=== PATIENT | male | born 1945 | race African-American/Black ===

== ENCOUNTER 2016-10-05 07:55 | Emergency (ER) | payer MEDICARE, OTHER ==
[~2016-10-05] VITALS: Ht 180.3 cm; Wt 80.0 kg
[~2016-10-05 07:55] MED LIST: DOXY100T PO
[2016-10-05 07:57] VITALS: BP 228/105; PULSE 104; RESP 15; TEMP 97.7; O2SAT 95
[2016-10-05 08:13] VITALS: BP 214/98; PULSE 88; RESP 18; O2SAT 100
[2016-10-05] MEDS ORDERED: SODIUM CHLOR 0.9% 1000 ML INJ 1,000 ML IV ONE (08:30)
[2016-10-05] MEDS ORDERED: ACETAMINOPHEN/HYDROcodone 325 MG/5 MG TAB PO ONE (08:30)
[2016-10-05 08:41] LABS: AUTOMATED NEUTROPHIL # 1.2 TH/MM3 (1.8-7.7); BASOPHIL % 1.4 % (0.0-2.0); EOSINOPHIL % 1.4 % (0.0-4.0); HEMATOCRIT 44.7 % (39.0-51.0); LYMPH % 45.6 % (9.0-44.0); LYMPHOCYTE # 1.5 TH/MM3 (1.0-4.8); MEAN CELL VOLUME 103.4 FL (80.0-100.0); MEAN CORPUSCULAR HEMOGLOBIN 34.2 PG (27.0-34.0); MEAN CORPUSCULAR HGB CONC 33.1 % (32.0-36.0); NEUT % 38.6 % (16.0-70.0); PLATELET COUNT 120 TH/MM3 (150-450); RED BLOOD COUNT 4.32 MIL/MM3 (4.50-5.90); RED CELL DISTRIBUTION WIDTH 13.1 % (11.6-17.2); WHITE BLOOD COUNT 3.2 TH/MM3 (4.0-11.0)
[2016-10-05 08:42] LABS: HEMO FLAGS AUTO DIFF
[2016-10-05 08:55] LABS: ALKALINE PHOSPHATASE 76 U/L (45-117); TOTAL BILIRUBIN ADULT 0.6 MG/DL (0.2-1.0)
[2016-10-05 09:06] LABS: ALT (GPT) 57 U/L (12-78); ANION GAP 8 MEQ/L (5-15); AST (GOT) 59 U/L (15-37); BICARBONATE 29.2 MEQ/L (21.0-32.0); BLOOD UREA NITROGEN 9 MG/DL (7-18); CHLORIDE 102 MEQ/L (98-107); GLOMERULAR FILTRATION RATE 91 ML/MIN (>89); POTASSIUM 4.3 MEQ/L (3.5-5.1); SODIUM (NA) 139 MEQ/L (136-145)
[2016-10-05 09:18] LABS: PLATELET ESTIMATE SMEAR LOW (NORMAL); PLATELET MORPHOLOGY ENLARGED (NORMAL); SCAN/DIFF AUTO DIFF CONFIRMED
--- NOTE | 2016-10-05 09:37 | PD ---
HPI Chief Complaint: Complaint Time Seen by Provider: 08:10 Travel History International Travel<30 days: No Contact w/Intl Traveler<30days: No Traveled to known affect area: No History of Present Illness HPI Patient is a 71-year-old male who comes in complaining of a left groin swelling. He says he's noticed it for the past week. He says it increases when he stands up, but goes away when he lays down. He says he has some pain when he coughs. He denies any nausea or vomiting. He says he's been having normal bowel movements. He denies any fever or chills. PFSH Past Medical History Arthritis: Yes Bipolar Disorder: Yes Anxiety: Yes Depression: Yes Cardiac Catheterization: Yes (2001) Cardiovascular Problems: No High Cholesterol: Yes Chest Pain: Yes Congestive Heart Failure: No Cerebrovascular Accident: No Diabetes: No Diminished Hearing: No Endocrine: No GERD: Yes Genitourinary: No Hiatal Hernia: No Hypertension: Yes Immune Disorder: No Inguinal Hernia: Yes Musculoskeletal: No Neurologic: Yes Psychiatric: No Reproductive: No Respiratory: No Immunizations Current: Yes Migraines: No Myocardial Infarction: No Schizophrenia: Yes Seizures: No Ulcer: No Tetanus Vaccination: Unknown Past Surgical History Abdominal Surgery: No Appendectomy: Yes Cardiac Surgery: Yes (STENT PLACEMENT) Coronary Artery Bypass Graft: No Coronary Stent: Yes (2001) Ear Surgery: No Endocrine Surgery: No Eye Surgery: No Genitourinary Surgery: No Gynecologic Surgery: No Oral Surgery: No Thoracic Surgery: No Tonsillectomy: Yes Other Surgery: Yes (HERNIA REPAIR) Social History Alcohol Use: Yes (occasionally ) Tobacco Use: Yes Substance Use: Yes (marijuana) Allergies-Medications (Allergen,Severity, Reaction): Coded Allergies: No Known Allergies (Verified , 12/02/14) Reported Meds & Prescriptions Reported Meds & Active Scripts Active Doxycycline Hyclate 100 mg (Doxycycline Hyclate) 100 Mg Tab 100 Mg PO BID TAKE UNTIL GONE Review of Systems Except as stated in HPI: all other systems reviewed are Neg General / Constitutional: No: Fever, Chills HENT: No: Headaches Cardiovascular: No: Chest Pain or Discomfort Respiratory: No: Shortness of Breath Gastrointestinal: No: Nausea, Vomiting, Diarrhea Genitourinary: No: Decreased Urinary Output Skin: No Change in Pigmentation Neurologic: No: Weakness, Dizziness Physical Exam Narrative GENERAL: Awake and alert, in no acute distress. SKIN: Warm and dry. HEAD: Atraumatic. Normocephalic. EYES: Pupils equal and round. No scleral icterus. ENT: Mucous membranes pink and moist. NECK: Trachea midline. No JVD. CARDIOVASCULAR: Regular rate and rhythm. No murmur appreciated. RESPIRATORY: No accessory muscle use. Clear to auscultation. Breath sounds equal bilaterally. GASTROINTESTINAL: Abdomen soft, non-tender, nondistended. : Performed in presence of female nurse. Uncircumcised male. Left inguinal hernia, reducible. No tenderness on palpation. MUSCULOSKELETAL: No obvious deformities. No clubbing. No cyanosis. No edema. NEUROLOGICAL: Awake and alert. No obvious cranial nerve deficits. Motor grossly within normal limits. Normal speech. PSYCHIATRIC: Appropriate mood and affect; insight and judgment normal. Data Data Last Documented VS Vital Signs Date Time Temp Pulse Resp B/P Pulse Ox O2 Delivery O2 Flow Rate FiO2 10/05/16 09:52 84 18 179/91 100 Room Air 10/05/16 07:57 97.7 Orders Complete Blood Count With Diff (10/05/16 08:23) Comprehensive Metabolic Panel (10/05/16 08:23) Acetamin-Hydrocod 325-5 Mg ([place] 5-325 (10/05/16 08:30) Sodium Chlor 0.9% 1000 Ml Inj (Ns 1000 M (10/05/16 08:30) Mandatory Outpatient Referral (10/05/16 09:39) Labs Laboratory Tests Test 10/05/16 08:30 White Blood Count 3.2 TH/MM3 Red Blood Count 4.32 MIL/MM3 Hemoglobin 14.8 GM/DL Hematocrit 44.7 % Mean Corpuscular Volume 103.4 FL Mean Corpuscular Hemoglobin 34.2 PG Mean Corpuscular Hemoglobin 33.1 % Concent Red Cell Distribution Width 13.1 % Platelet Count 120 TH/MM3 Mean Platelet Volume 11.3 FL Neutrophils (%) (Auto) 38.6 % Lymphocytes (%) (Auto) 45.6 % Monocytes (%) (Auto) 13.0 % Eosinophils (%) (Auto) 1.4 % Basophils (%) (Auto) 1.4 % Neutrophils # (Auto) 1.2 TH/MM3 Lymphocytes # (Auto) 1.5 TH/MM3 Monocytes # (Auto) 0.4 TH/MM3 Eosinophils # (Auto) 0.0 TH/MM3 Basophils # (Auto) 0.0 TH/MM3 CBC Comment AUTO DIFF Differential Comment AUTO DIFF CONFIRMED Platelet Estimate LOW Platelet Morphology Comment ENLARGED Sodium Level 139 MEQ/L Potassium Level 4.3 MEQ/L Chloride Level 102 MEQ/L Carbon Dioxide Level 29.2 MEQ/L Anion Gap 8 MEQ/L Blood Urea Nitrogen 9 MG/DL Creatinine 0.99 MG/DL Estimat Glomerular Filtration 91 ML/MIN Rate Random Glucose 64 MG/DL Calcium Level 9.3 MG/DL Total Bilirubin 0.6 MG/DL Aspartate Amino Transf 59 U/L (AST/SGOT) Alanine Aminotransferase 57 U/L (ALT/SGPT) Alkaline Phosphatase 76 U/L Total Protein 8.1 GM/DL Albumin 3.6 GM/DL [facility] Medical Decision Making Medical Screen Exam Complete: Yes Emergency Medical Condition: Yes Medical Record Reviewed: Yes Differential Diagnosis Inguinal hernia versus incarcerated hernia versus testicular mass versus groin strain Narrative Course Patient is a 71-year-old male comes in complaining of swelling in the left groin. Exam shows a left inguinal hernia that is reducible. Labs sent. Labs show elevated MCV, hemoglobin is within normal limits. Chemistries within normal limits. Patient given a Lortab as well as IV fluids. Mandatory referral placed to surgery. Patient advised this can become emergent if the hernia get stuck and he is unable to push back in. He is advised to return immediately this happens. Advised to return to the ED as needed for any worsening symptoms. Told to follow up with surgery. Diagnosis Primary Impression: Inguinal hernia Qualified Code: K40.90 - Unilateral inguinal hernia without obstruction or gangrene, recurrence not specified Referrals: Andrae Hernandez MD call for appointment Patient Instructions: General Instructions, Inguinal Hernia (ED) Additional Instructions: Return to the ED if your hernia becomes stuck or very painful. Return as needed for any worsening symptoms. Follow up with general surgery. Take Tylenol or Ibuprofen as needed for pain. Disposition: 01 DISCHARGE HOME Condition: Stable Nina Valdez MD Oct 05, 2016 09:37
[2016-10-05 09:52] VITALS: BP 179/91; PULSE 84; RESP 18; O2SAT 100
== END 2016-10-05 10:21 | disposition home or self-care (01) ==
LOC: NEPE 07:55
DX: K40.90 Unilateral inguinal hernia, without obstruction or gangrene, not specified as recurrent (principal); E78.00 Pure hypercholesterolemia, unspecified; I10 Essential (primary) hypertension; K21.9 Gastro-esophageal reflux disease without esophagitis; Z72.0 Tobacco use
CPT/HCPCS: 80053; 85025; 96360; 99283; J7030

== ENCOUNTER 2017-01-16 08:00 | Emergency (ER) | payer MEDICARE, OTHER ==
[~2017-01-16] VITALS: Ht 180.3 cm; Wt 84.0 kg
[2017-01-16 08:08] VITALS: BP 196/101; PULSE 84; RESP 16; TEMP 98.2; O2SAT 98
--- NOTE | 2017-01-16 08:10 | PD ---
HPI Chief Complaint: Complaint Time Seen by Provider: 08:10 Travel History International Travel<30 days: No Contact w/Intl Traveler<30days: No Traveled to known affect area: No History of Present Illness HPI 71-year-old Afro-[place]i male presents to emergency Department with dysuria. He states she's had this a couple of days. Patient states his girlfriend was seen yesterday and treated for chlamydia, which his here today. Patient denies fever, chills, flank pain, does have some lower abdominal discomfort and pain with urination. He has no nausea or vomiting. He has no discharge from the penis. He denies lesions on the penis. He denies testicular pain. He has no known drug allergies. [facility] Past Medical History Arthritis: Yes Bipolar Disorder: Yes Anxiety: Yes Depression: Yes Cardiac Catheterization: Yes (2001) Cardiovascular Problems: Yes (htn) High Cholesterol: Yes Chest Pain: Yes Congestive Heart Failure: No Cerebrovascular Accident: No Diabetes: No Diminished Hearing: No Endocrine: No GERD: Yes Genitourinary: No Hiatal Hernia: No Hypertension: Yes Immune Disorder: No Inguinal Hernia: Yes Musculoskeletal: No Neurologic: Yes Psychiatric: No Reproductive: No Respiratory: No Immunizations Current: Yes Migraines: No Myocardial Infarction: No Schizophrenia: Yes Seizures: No Ulcer: No Past Surgical History Abdominal Surgery: No Appendectomy: Yes Cardiac Surgery: Yes (STENT PLACEMENT) Coronary Artery Bypass Graft: No Coronary Stent: Yes (2001) Ear Surgery: No Endocrine Surgery: No Eye Surgery: No Genitourinary Surgery: No Gynecologic Surgery: No Oral Surgery: No Thoracic Surgery: No Tonsillectomy: Yes Other Surgery: Yes (HERNIA REPAIR) Social History Alcohol Use: Yes (occasionally ) Tobacco Use: Yes Substance Use: Yes (marijuana) Allergies-Medications (Allergen,Severity, Reaction): Coded Allergies: No Known Allergies (Verified , 01/16/17) Reported Meds & Prescriptions Reported Meds & Active Scripts Active Doxycycline Hyclate 100 mg (Doxycycline Hyclate) 100 Mg Tab 100 Mg PO BID TAKE UNTIL GONE Review of Systems Except as stated in HPI: all other systems reviewed are Neg General / Constitutional: No: Fever, Chills Eyes: No: Visual changes HENT: No: Headaches Cardiovascular: No: Chest Pain or Discomfort Respiratory: No: Shortness of Breath Gastrointestinal: No: Abdominal Pain Genitourinary: Positive: Dysuria, No: Flank Pain, Discharge Musculoskeletal: No: Pain Skin: No Rash Neurologic: No: Weakness Psychiatric: No: Depression Endocrine: No: Polydipsia Hematologic/Lymphatic: No: Easy Bruising Physical Exam Narrative GENERAL: Patient appears in no acute distress. SKIN: Warm and dry. Normal color. Normal turgor. No rash. HEAD: Atraumatic. Normocephalic. EYES: Pupils equal and round. No scleral icterus. No injection or drainage. ENT: No nasal bleeding or discharge. Mucous membranes pink and moist. Pharynx is clear. Airway is patent. NECK: Trachea midline. Supple and nontender. CARDIOVASCULAR: Regular rate and rhythm. RESPIRATORY: No accessory muscle use. Clear to auscultation. Breath sounds equal bilaterally. GASTROINTESTINAL: Abdomen soft, non-tender, nondistended. Hepatic and splenic margins not palpable. No CVA tenderness. GENITAL: No visible lesions or drainage. No testicular pain. MUSCULOSKELETAL: Extremities without clubbing, cyanosis, or edema. No obvious deformities. NEUROLOGICAL: Awake and alert. No obvious cranial nerve deficits. Motor grossly within normal limits. Five out of 5 muscle strength in the arms and legs. Normal speech. PSYCHIATRIC: Appropriate mood and affect; insight and judgment normal. Data Data Last Documented VS Vital Signs Date Time Temp Pulse Resp B/P Pulse Ox O2 Delivery O2 Flow Rate FiO2 01/16/17 08:08 98.2 84 16 196/101 98 Orders Urinalysis - C+S If Indicated (01/16/17 08:07) Gc And Chlamydia Pcr (01/16/17 08:07) Azithromycin (Zithromax) (01/16/17 08:15) Ceftriaxone Inj (Rocephin Inj) (01/16/17 08:15) Lidocaine 1% Inj (50 Ml) (Xylocaine 1% I (01/16/17 08:15) Labs Laboratory Tests Test 01/16/17 08:20 Urine Color LIGHT-YELLOW Urine Turbidity CLEAR Urine pH 6.5 Urine Specific [place] 1.001 Urine Protein NEG mg/dL Urine Glucose (UA) NEG mg/dL Urine Ketones NEG mg/dL Urine Occult Blood NEG Urine Nitrite NEG Urine Bilirubin NEG Urine Urobilinogen LESS THAN 2.0 MG/DL Urine Leukocyte Esterase NEG Urine RBC LESS THAN 1 /hpf Urine WBC LESS THAN 1 /hpf Microscopic Urinalysis Comment CULT NOT INDICATED MDM Medical Decision Making Medical Screen Exam Complete: Yes Emergency Medical Condition: Yes Differential Diagnosis Exposure to STD. Chlamydia. Gonorrhea. Narrative Course Urinalysis is sent to the lab for both urine and GC chlamydia. Patient is treated with Rocephin 1000 mg IM, and 1000 mg azithromycin by mouth 1. Urine shows no obvious signs of infection. GC and chlamydia testing still pending. No further treatment is felt warranted. Patient should refrain from sexual activity for the next week. Patient to [facility] Or his primary care physician. Diagnosis Primary Impression: Exposure to sexually transmitted disease (STD) Referrals: Primary Care Physician [facility]. Patient Instructions: General Instructions, Sexually Transmitted Diseases (ED) Additional Instructions: Patient is treated with Rocephin 1000 mg IM, and 1000 mg azithromycin by mouth 1. Urine shows no obvious signs of infection. GC and chlamydia testing still pending. No further treatment is felt warranted. Patient should refrain from sexual activity for the next week. Patient to follow up with [facility]. Or his primary care physician. Med/Other Pt SpecificInfo: No Meds Exist/No RX given Disposition: 01 DISCHARGE HOME Condition: Stable Keron Thibodeaux Jan 16, 2017 08:10
[2017-01-16] MEDS ORDERED: LIDOCAINE HCL 1% 50 ML VIAL XX ONE (08:15)
[2017-01-16] MEDS ORDERED: AZITHROMYCIN 250 MG TAB PO ONE (08:15)
[2017-01-16 08:40] LABS: BLOOD, URINE NEG (NEG); GLUCOSE,URINE NEG (NEG); KETONE, URINE NEG (NEG); NITRITE,URINE NEG (NEG); PH, URINE 6.5 (5.0-8.5); URINE COLOR LIGHT-YELLOW (YELLW/STRAW)
[2017-01-16 08:46] LABS: COMMENT (UR) CULT NOT INDICATED; CULTURE IF INDICATED CULT NOT INDICATED
[2017-01-16 11:26] LABS: CHLAMYDIA PCR DETECTED (NOT DETECT); NEISSERIA PCR NOT DETECTED (NOT DETECT)
== END 2017-01-16 09:36 | disposition home or self-care (01) ==
LOC: NEPD 08:00
DX: Z20.2 Contact with and (suspected) exposure to infections with a predominantly sexual mode of transmission (principal); I10 Essential (primary) hypertension; E78.00 Pure hypercholesterolemia, unspecified; Z72.0 Tobacco use; Z95.5 Presence of coronary angioplasty implant and graft
CPT/HCPCS: 81001; 87491; 87591; 96372; 99284; J0696